=== PATIENT | male | born 1955 | race Caucasian/White ===

== ENCOUNTER → 2021-06-13 | Outpatient (CLI) | payer MEDICARE ==
--- NOTE | 2021-06-13 13:36 | XR ---
Right hand HISTORY: Trauma and pain 3 views the right hand Soft tissue swelling is noted at the metacarpophalangeal joint of the third digit. Bone mineralizatio n is somewhat reduced. The fifth digit is flexed distally, correlate for tendon injury. There is a ho oked osteophyte present at the third metacarpal with joint space loss greater than at the second digi t. Suspect there is a ossific fragment dorsal to the metacarpophalangeal joint. Arthropathy changes a re present at the distal interphalangeal joint of the second and fifth digit, metacarpophalangeal karena nt of the first digit. IMPRESSION: Findings may represent intra-articular mildly displaced chip fracture the distal dorsal t hird metacarpal, there is underlying arthropathy which may be due to hemachromatosis or crystal depos ition arthropathy. Findings in the fifth digit as described.
--- NOTE | 2021-06-13 13:43 | XR ---
Chest x-ray with right RIBS HISTORY: Trauma and pain Frontal view of the chest, 4 views of the right ribs submitted and correlated prior chest x-ray 2015 Multilevel thoracic spondylosis is present with a slight spinal curvature. 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 Cardiac mediastinal silhouette is stable. Bone mineralization is reduced which could limit evaluation. Questionable lucency noted at the 11th rib may be artifactual. IMPRESSION: Difficult to exclude fracture, bone scan could be performed for increased sensitivity as indicated.
== END | disposition home or self-care (01) ==
LOC: RADXRYALE 11:41
PROVIDERS: ATTEND Internal Medicine
DX: S23.41XA Sprain of ribs, initial encounter (principal); S60.921A Unspecified superficial injury of right hand, initial encounter; M79.641 Pain in right hand; X58.XXXA Exposure to other specified factors, initial encounter

== ENCOUNTER → 2022-10-31 | Outpatient (CLI) | payer MEDICARE ==
--- NOTE | 2022-10-31 12:47 | US ---
EXAMINATION TYPE: US abdomen complete DATE OF EXAM: 10/31/2022 COMPARISON: NONE CLINICAL INDICATION: Male, 67 years old with history of R10.13 Epigastric pain. TECHNIQUE: Multiple sonographic images of the abdomen are obtained. FINDINGS: EXAM MEASUREMENTS: Liver Length: 16.7 cm Gallbladder Wall: 0.2 cm Spleen: 9.8 cm Right Kidney: 11.4 x 5.6 x 5.6 cm Left Kidney: 11.9 x 5.0 x 5.7 cm Pancreas: Tail obscured by overlying bowel gas Liver: Echogenic. No focal lesion seen. Gallbladder: wnl Evidence for sonographic Vazquez's sign: neg CBD: Obscured by overlying bowel gas Spleen: wnl Right Kidney: No hydronephrosis or masses seen Left Kidney: No hydronephrosis or masses seen Upper IVC: wnl Abd Aorta: No AAA visualized at time of scan IMPRESSION: 1. Moderate hepatic steatosis. Correlate with LFTs, lipid profile, and patient risk factors. 2. No gallstones or biliary ductal dilatation.
== END | disposition home or self-care (01) ==
LOC: RADUSWWP 08:02
PROVIDERS: ATTEND Internal Medicine
DX: K76.0 Fatty (change of) liver, not elsewhere classified (principal); R10.13 Epigastric pain
CPT/HCPCS: 76700

== ENCOUNTER → 2023-03-20 | Outpatient (CLI) | payer MEDICARE ==
--- NOTE | 2023-03-20 11:56 | XR ---
EXAMINATION TYPE: XR abdomen 2V DATE OF EXAM: 03/20/2023 COMPARISON: NONE HISTORY: Pain TECHNIQUE: One view abdominal series FINDINGS: The osseous structures are intact. The bowel gas pattern is nonspecific extensive retained fecal barry ris. Lung bases are clear. Degenerative changes in the spine. Bilateral hip arthropathy. Diffuse ost eopenia. IMPRESSION: 1. Nonspecific abdomen. Retained bowel contents correlate for constipation.
== END | disposition home or self-care (01) ==
LOC: RADXRYALE 11:07
PROVIDERS: ATTEND Internal Medicine
DX: K59.00 Constipation, unspecified (principal)
CPT/HCPCS: 74019

== ENCOUNTER 2023-11-14 06:58 | Day surgery (SDC) | payer MEDICARE ==
[~2023-11-14 06:58] MED LIST: LIDOCAINE 1% (10MG/ML) FOR IV START INTRADERMA PRN
[2023-11-14] MEDS ORDERED: MIDAZOLAM 2 MG/2 ML VIAL IV PRN (07:00)
[2023-11-14] MEDS: IV FLUID CONTINUATION 1,000 ML IV ONE ×2 (07:18→07:42)
[2023-11-14 07:27] VITALS: TEMP 97.1
[2023-11-14 07:28] LABS: Glucose,Whole Blood 139 mg/dL (70-110)
[2023-11-14] MEDS: LACTATED RINGERS 1,000 ML IV SCH (07:28)
[2023-11-14] MEDS ORDERED: LIDOCAINE 1% INJ 10MG/ML (20 ML MDV) ONE (07:43)
[2023-11-14] MEDS ORDERED: PROPOFOL 10 MG/ML 20 ML VIAL IV ONE (07:43)
--- NOTE | 2023-11-14 08:07 | P.PCN ---
Date of Procedure: 11/14/23 Procedure(s) Performed: Brief history: Patient is a pleasant 68-year-old white male scheduled for an elective upper endoscopy as well as colonoscopy as a part of evaluation of GERD/intermittent black tarry stools and change in bowel habits Procedure performed: Esophagogastroduodenoscopy with biopsy Colonoscopy Preoperative diagnosis: GERD/intermittent black tarry stools Change in bowel habits Anesthesia: MAC Procedure: After informed consent was obtained from the patient was brought into the endoscopy unit and IV sedation was administered by anesthesia under continuous monitoring. Initially upper endoscopy was done. The Olympus GF 160 video endoscope was inserted inserted into the mouth and esophagus intubated without any difficulty and was gradually advanced into the stomach and duodenum and carefully examined. The bulb and second part of the duodenum appeared normal. The scope was then withdrawn into the stomach adequately insufflated with air and upon careful examination the antrum and body, gastritis and biopsies were done from this area. Mucosa of the cardia and fundus appeared normal. The scope was then withdrawn into the esophagus. Small sliding-type hiatal hernia noted. The GE junction was located at 42 cm to the incisors. It appeared regular with no erythema erosions or ulcerations. Rest of the esophagus appeared normal. Patient tolerated the procedure well. At this time the patient continued to remain sedation. Initial digital rectal examination was normal. Olympus CF 160 video colonoscope was then inserted into the rectum and gradually advanced to the cecum without any difficulty. Careful examination was performed as the scope was gradually being withdrawn. The prep was excellent. The cecum, ascending colon, transverse colon, descending colon, sigmoid colon and rectum appeared normal. Retroflexion was performed in the rectum and small internal were noted. Patient tolerated the procedure well. Impression: 1. Upper endoscopy revealed small hiatal hernia and mild antral gastritis 2. Colonoscopy was within normal limits with no evidence of colorectal neoplasia except for small internal hemorrhoids. Recommendations: Findings of this examination were discussed with the patient as well as his family. He was advised to follow-up with the biopsy results. Continue omeprazole 20 mg daily and follow antireflux measures. Recommended repeat screening colonoscopy in 10 years.
[2023-11-14 08:24] VITALS: BP 117/72; PULSE 78; RESP 16
== END 2023-11-14 08:43 | disposition home or self-care (01) ==
LOC: ORWHC2ENDO 06:58
PROVIDERS: ATTEND Internal Medicine Gastroenterology
DX: K29.50 Unspecified chronic gastritis without bleeding (principal); K21.9 Gastro-esophageal reflux disease without esophagitis; K44.9 Diaphragmatic hernia without obstruction or gangrene; K64.8 Other hemorrhoids; I25.10 Atherosclerotic heart disease of native coronary artery without angina pectoris; E11.9 Type 2 diabetes mellitus without complications; Z79.84 Long term (current) use of oral hypoglycemic drugs; Z79.02 Long term (current) use of antithrombotics/antiplatelets; Z79.899 Other long term (current) drug therapy; Z95.5 Presence of coronary angioplasty implant and graft
CPT/HCPCS: 88305; 45378; 43239; J2001; J2704